=== PATIENT | male | born 1990 | race Two or more races ===

== ENCOUNTER 2021-06-12 14:59 | Emergency (ER) | payer MEDICAID, OTHER ==
[~2021-06-12] VITALS: Ht 162.6 cm; Wt 56.7 kg
[2021-06-12] MEDS ORDERED: SODIUM CHLORIDE 0.9% 1,000 ML IV ONE ×2 (15:15)
[2021-06-12 15:24] VITALS: BP 164/120
== END 2021-06-12 15:46 | disposition left against medical advice (07) ==
LOC: EDBD 14:59 → ER 14:59
DX: T50.901A Poisoning by unspecified drugs, medicaments and biological substances, accidental (unintentional), initial encounter (principal); G93.41 Metabolic encephalopathy; Y92.89 Other specified places as the place of occurrence of the external cause
CPT/HCPCS: 99283; J7030

== ENCOUNTER 2021-08-07 15:37 | Emergency (ER) | payer MEDICAID ==
[~2021-08-07] VITALS: Ht 162.6 cm; Wt 59.0 kg
[2021-08-07 16:14] VITALS: BP 113/69
== END 2021-08-07 16:16 | disposition home or self-care (01) ==
LOC: ER 15:37 → EDBD 15:37 → EDUNIT# 15:37 → ER 16:16
DX: R41.82 Altered mental status, unspecified (principal); F17.210 Nicotine dependence, cigarettes, uncomplicated; F12.10 Cannabis abuse, uncomplicated; Z59.00 Homelessness unspecified

== ENCOUNTER 2021-08-13 19:05 | Emergency (ER) | payer MEDICAID ==
[2021-08-13] MEDS ORDERED: SODIUM CHLORIDE 0.9% 1,000 ML IVB ONE (19:15)
== END 2021-08-13 19:45 | disposition left against medical advice (07) ==
LOC: ER 19:05
DX: T40.411A Poisoning by fentanyl or fentanyl analogs, accidental (unintentional), initial encounter (principal); F17.210 Nicotine dependence, cigarettes, uncomplicated; Z59.00 Homelessness unspecified; Y92.89 Other specified places as the place of occurrence of the external cause